=== PATIENT | female | born 1940 | race Caucasian/White ===

== ENCOUNTER 2022-05-27 16:24 | Inpatient (IN) | payer MEDICARE, BC ==
[2022-05-27 17:44] LABS: #Eosinphils 0.1 10x3/uL (0.0-0.5); #Monocytes 0.8 10x3/uL (0.0-1.1); #Neutrophils 7.7 10x3/uL (1.5-8.4); %Basophils 0.3 % (0.0-2.0); %Eosinophils 1.4 % (0.0-6.0); %Lymphocytes 7.4 % (18.0-47.0); %Monocytes 8.9 % (0.0-10.0); %Neutrophils 81.5 % (40.0-75.0); Hemoglobin 8.8 g/dL (12.0-15.5); Mean Corpuscular HGB CONC 31.7 g/dL (32.0-36.0); Mean Corpuscular Hemoglobin 28.7 pg (27.0-33.0); Mean Corpuscular Volume 90.6 fl (81.6-98.3); Mean Platelet Volume 10.5 fl (7.4-10.4); Platelet Count 195 10x3/uL (150-450); RBC Distribution Width 12.5 % (11.5-14.5); Red Blood Cell (RBC) Count 3.07 10x6/uL (3.90-5.03); White Blood Cell (WBC) Count 9.4 10x3/uL (3.5-10.5)
[2022-05-27 17:55] LABS: ALT (SGPT) 10 U/L (8-55); AST (SGOT) 14 U/L (5-34); Albumin 3.2 g/dL (3.4-4.8); Alkaline Phosphatase 74 U/L (40-110); Anion Gap 14 mmol/L (10-20); BUN (Urea Nitrogen) 32 mg/dL (9.8-20.1); Bilirubin, Total 0.8 mg/dL (0.2-1.2); Calc. Creatinine Clearance 0 mL/min (70-130); Calcium 8.5 mg/dL (7.8-10.44); Carbon Dioxide 22 mmol/L (23-31); Chloride 108 mmol/L (98-107); Estimated GFR 25; Globulin 2.8 g/dL (2.4-3.5); Glucose 187 mg/dL (83-110); Potassium 3.4 mmol/L (3.5-5.1); Sodium 141 mmol/L (136-145)
[2022-05-27] MEDS ORDERED: Cefepime 2 GM VIAL ONE (18:11)
[2022-05-27] MEDS ORDERED: VANCOMYCIN 2 GRAM/400 ML BAG 2 GM in Premix Bag 1 BAG IVPB SCH (18:45)
[2022-05-27 20:55] VITALS: BMI 31.6
[2022-05-27] MEDS ORDERED: Apixaban 2.5 MG TAB PO SCH (21:15)
[2022-05-27] MEDS ORDERED: Potassium Chloride 20 MEQ TAB PO SCH (21:15)
[2022-05-27] MEDS ORDERED: Vancomycin 1 GM in Premix Bag 1 BAG IVPB PRN (21:22)
[2022-05-27] MEDS: Sodium Chloride 0.9% 1,000 ML IV SCH (22:29)
[2022-05-27] MEDS ORDERED: FLU VACC QS2022-23(65YR UP)/PF 240 MCG/0.7 ML SYRINGE IM ONE (23:15)
[2022-05-28 04:24] LABS: Anion Gap 12 mmol/L (10-20); BUN (Urea Nitrogen) 30 mg/dL (9.8-20.1); Calc. Creatinine Clearance 33 mL/min (70-130); Calcium 8.2 mg/dL (7.8-10.44); Carbon Dioxide 24 mmol/L (23-31); Chloride 108 mmol/L (98-107); Estimated GFR 29; Glucose 133 mg/dL (83-110); Potassium 3.5 mmol/L (3.5-5.1); Sodium 140 mmol/L (136-145)
[2022-05-28 04:35] LABS: #Eosinphils 0.3 10x3/uL (0.0-0.5); #Monocytes 0.6 10x3/uL (0.0-1.1); #Neutrophils 6.5 10x3/uL (1.5-8.4); %Basophils 0.4 % (0.0-2.0); %Eosinophils 3.7 % (0.0-6.0); %Lymphocytes 8.1 % (18.0-47.0); %Monocytes 7.8 % (0.0-10.0); %Neutrophils 79.6 % (40.0-75.0); Hemoglobin 7.9 g/dL (12.0-15.5); Mean Corpuscular HGB CONC 33.5 g/dL (32.0-36.0); Mean Corpuscular Hemoglobin 28.8 pg (27.0-33.0); Mean Corpuscular Volume 86.1 fl (81.6-98.3); Platelet Count 193 10x3/uL (150-450); RBC Distribution Width 12.4 % (11.5-14.5); Red Blood Cell (RBC) Count 2.74 10x6/uL (3.90-5.03); White Blood Cell (WBC) Count 8.1 10x3/uL (3.5-10.5)
[2022-05-28] MEDS: Carvedilol 12.5 MG TAB PO SCH ×2 (08:55→17:18)
[2022-05-28] MEDS: Furosemide 40 MG TAB PO SCH (08:55)
[2022-05-28] MEDS ORDERED: Apixaban 2.5 MG TAB PO SCH ×2 (09:00)
[2022-05-28] MEDS ORDERED: Glimepiride 2 MG TAB PO SCH (09:00)
[2022-05-28] MEDS ORDERED: Dextrose 50% Abboject 50 ML SYRINGE SLOW IVP PRN (13:22)
[2022-05-28] MEDS ORDERED: Dextrose 5% in Water 1,000 ML IV PRN (13:22)
[2022-05-28] MEDS: Sodium Chloride 0.9% 1,000 ML IV SCH (17:16)
[2022-05-28] MEDS: Cefepime 1 GM in Sodium Chloride 0.9% 100 ML IVPB SCH (17:17)
[2022-05-28] MEDS ORDERED: VANCOMYCIN 1.25 GM/250 ML BAG IVPB SCH (19:00)
[2022-05-28 19:59] LABS: Vancomycin, Random 16.7 ug/mL (See Comment)
[2022-05-28] MEDS: Enoxaparin Sodium 100 MG/ML SYRINGE SC SCH (23:32)
[2022-05-28] MEDS: Lantus 1000 UNITS/10 ML VIAL SC SCH (23:34)
[2022-05-29] MEDS ORDERED: Vancomycin HCl 500 MG in Sodium Chloride 0.9% 100 ML IVPB SCH (06:00)
[2022-05-29] MEDS: Sodium Chloride 0.45% 1,000 ML IV SCH ×2 (06:02→15:25)
[2022-05-29] MEDS: Carvedilol 12.5 MG TAB PO SCH ×2 (06:02→18:46)
[2022-05-29] MEDS: Furosemide 40 MG TAB PO SCH (07:30)
[2022-05-29 08:36] LABS: Hemoglobin 8.8 g/dL (12.0-15.5); Mean Corpuscular HGB CONC 32.2 g/dL (32.0-36.0); Mean Corpuscular Hemoglobin 27.9 pg (27.0-33.0); Mean Corpuscular Volume 86.7 fl (81.6-98.3); Mean Platelet Volume 10.1 fl (7.4-10.4); Platelet Count 239 10x3/uL (150-450); RBC Distribution Width 12.5 % (11.5-14.5); Red Blood Cell (RBC) Count 3.15 10x6/uL (3.90-5.03); White Blood Cell (WBC) Count 8.5 10x3/uL (3.5-10.5)
[2022-05-29 09:00] LABS: Anion Gap 15 mmol/L (10-20); BUN (Urea Nitrogen) 32 mg/dL (9.8-20.1); Calc. Creatinine Clearance 30 mL/min (70-130); Calcium 8.5 mg/dL (7.8-10.44); Carbon Dioxide 20 mmol/L (23-31); Chloride 110 mmol/L (98-107); Estimated GFR 26; Glucose 126 mg/dL (83-110); Potassium 3.5 mmol/L (3.5-5.1); Sodium 141 mmol/L (136-145)
[2022-05-29] MEDS: Cefepime 1 GM in Sodium Chloride 0.9% 100 ML IVPB SCH (18:46)
[2022-05-29] MEDS ORDERED: Ondansetron PF 4 MG/2 ML Vial ONE (20:00)
[2022-05-29] MEDS ORDERED: Fentanyl 100 MCG/2 ML VIAL ONE (20:00)
[2022-05-29] MEDS ORDERED: Dexamethasone 4 mg/ml Vial ONE (20:00)
[2022-05-29] MEDS ORDERED: PROPOFOL 200 MG/20 ML VIAL ONE (20:00)
[2022-05-29] MEDS: Enoxaparin Sodium 100 MG/ML SYRINGE SC SCH (20:36)
[2022-05-29] MEDS: Lantus 1000 UNITS/10 ML VIAL SC SCH (20:36)
[2022-05-29] MEDS ORDERED: traMADol HCl 50 MG TAB PO PRN (20:40)
[2022-05-29] MEDS ORDERED: Acetaminophen 500 MG TAB PO PRN (20:40)
[2022-05-29] MEDS ORDERED: Ibuprofen 400 MG TAB PO PRN (20:57)
[2022-05-30] MEDS: Sodium Chloride 0.45% 1,000 ML IV SCH ×2 (01:39→12:15)
[2022-05-30] MEDS: HumaLOG 300 UNITS/3 ML VIAL SC PRN ×3 (05:38→21:11)
[2022-05-30 06:12] LABS: Vancomycin, Random 12.5 ug/mL (See Comment)
[2022-05-30 08:50] LABS: Anion Gap 13 mmol/L (10-20); BUN (Urea Nitrogen) 30 mg/dL (9.8-20.1); Calc. Creatinine Clearance 39 mL/min (70-130); Calcium 8.2 mg/dL (7.8-10.44); Carbon Dioxide 20 mmol/L (23-31); Chloride 109 mmol/L (98-107); Estimated GFR 35; Glucose 220 mg/dL (83-110); Potassium 3.7 mmol/L (3.5-5.1); Sodium 138 mmol/L (136-145)
[2022-05-30 08:55] LABS: Hemoglobin 8.6 g/dL (12.0-15.5); Mean Corpuscular HGB CONC 33.1 g/dL (32.0-36.0); Mean Corpuscular Hemoglobin 28.1 pg (27.0-33.0); Mean Platelet Volume 9.8 fl (7.4-10.4); Platelet Count 219 10x3/uL (150-450); RBC Distribution Width 12.4 % (11.5-14.5); Red Blood Cell (RBC) Count 3.06 10x6/uL (3.90-5.03); White Blood Cell (WBC) Count 4.9 10x3/uL (3.5-10.5)
[2022-05-30] MEDS: Carvedilol 12.5 MG TAB PO SCH ×2 (10:14→17:16)
[2022-05-30] MEDS: Furosemide 40 MG TAB PO SCH (10:19)
[2022-05-30] MEDS ORDERED: Vancomycin HCl 750 MG in Sodium Chloride 0.9% 250 ML 250 ML IVPB SCH (11:00)
[2022-05-30] MEDS: Cefepime 1 GM in Sodium Chloride 0.9% 100 ML IVPB SCH ×2 (12:15→22:58)
[2022-05-30] MEDS ORDERED: Amlodipine 10 MG TAB PO SCH (12:30)
[2022-05-30] MEDS: Apixaban 5 MG TAB PO SCH (21:06)
[2022-05-30] MEDS: Lantus 1000 UNITS/10 ML VIAL SC SCH (21:08)
[2022-05-31] MEDS: Sodium Chloride 0.45% 1,000 ML IV SCH ×3 (00:48→08:30)
[2022-05-31] MEDS ORDERED: Magnesium Citrate 300 ML BOT PO SCH (08:00)
[2022-05-31] MEDS: Amlodipine 5 MG TAB PO SCH (08:25)
[2022-05-31] MEDS: Polyethylene Glycol 3350 17 GM Packet PO SCH (08:25)
[2022-05-31] MEDS: Apixaban 5 MG TAB PO SCH ×2 (08:25→20:22)
[2022-05-31] MEDS: Carvedilol 12.5 MG TAB PO SCH ×2 (08:26→17:23)
[2022-05-31] MEDS: Furosemide 40 MG TAB PO SCH (08:27)
[2022-05-31] MEDS ORDERED: Milk Of Magnesia 30 ML UDCUP PO SCH (12:00)
[2022-05-31] MEDS: Cefepime 1 GM in Sodium Chloride 0.9% 100 ML IVPB SCH (12:03)
[2022-05-31 12:06] LABS: Vancomycin, Random 14.7 ug/mL (See Comment)
[2022-05-31] MEDS ORDERED: Vancomycin HCl 1 GM in Sodium Chloride 0.9% 250 ML 250 ML IVPB SCH (15:00)
[2022-05-31] MEDS: Amoxicillin/Potassium Clav 500 MG TAB PO SCH (20:22)
[2022-05-31] MEDS: Lantus 1000 UNITS/10 ML VIAL SC SCH (20:23)
[2022-05-31] MEDS: HumaLOG 300 UNITS/3 ML VIAL SC PRN (20:23)
[2022-06-01] MEDS ORDERED: Bisacodyl 10 MG SUPP PR PRN (05:36)
[2022-06-01] MEDS: Polyethylene Glycol 3350 17 GM Packet PO SCH (10:18)
[2022-06-01] MEDS: Carvedilol 12.5 MG TAB PO SCH (10:18)
[2022-06-01] MEDS: Amoxicillin/Potassium Clav 500 MG TAB PO SCH (10:18)
[2022-06-01] MEDS: Furosemide 40 MG TAB PO SCH (10:18)
[2022-06-01] MEDS: Amlodipine 5 MG TAB PO SCH (10:18)
[2022-06-01] MEDS: Apixaban 5 MG TAB PO SCH (10:18)
[2022-06-01 15:14] VITALS: BP 166/71; TEMP 98.1
== END 2022-06-01 16:34 | disposition home health service (06) | DRG 617 ==
LOC: CSHERS 16:24 → CSHTELE 20:27
PROVIDERS: ADMIT Family Medicine; ATTEND Family Medicine
PROC: 0Y6P0Z1 Detachment at Right 1st Toe, High, Open Approach (ICD-10-PCS; principal; 2022-05-29)
DX: E11.628 Type 2 diabetes mellitus with other skin complications (principal); I50.32 Chronic diastolic (congestive) heart failure; M86.8X7 Other osteomyelitis, ankle and foot; Z20.822 Contact with and (suspected) exposure to COVID-19; E11.42 Type 2 diabetes mellitus with diabetic polyneuropathy; E11.22 Type 2 diabetes mellitus with diabetic chronic kidney disease; N18.4 Chronic kidney disease, stage 4 (severe); D63.1 Anemia in chronic kidney disease; E87.6 Hypokalemia; E11.69 Type 2 diabetes mellitus with other specified complication; K43.2 Incisional hernia without obstruction or gangrene; K59.00 Constipation, unspecified; B95.5 Unspecified streptococcus as the cause of diseases classified elsewhere; L97.519 Non-pressure chronic ulcer of other part of right foot with unspecified severity; Z86.718 Personal history of other venous thrombosis and embolism; Z79.01 Long term (current) use of anticoagulants; I25.2 Old myocardial infarction; Z89.422 Acquired absence of other left toe(s); Z79.4 Long term (current) use of insulin; Z90.49 Acquired absence of other specified parts of digestive tract; Z80.3 Family history of malignant neoplasm of breast; Z79.84 Long term (current) use of oral hypoglycemic drugs; Z90.710 Acquired absence of both cervix and uterus; Z90.722 Acquired absence of ovaries, bilateral; Z91.040 Latex allergy status
CPT/HCPCS: 36415; 36416; 80048; 80053; 80202; 82565; 83605; 83735; 85025; 85027; 87040; 87070; 87077; 87186; 87205; 88305; 88311; 93005; 93010; 96365; 96367; 97139; J0692; J1100; J1650; J1815; J2405; J2704; J3010; J3370; J3490; J7050; J7070; J7999; U0003; U0005

== ENCOUNTER 2022-06-19 11:31 | Outpatient (CLI) | payer MEDICARE, BC | END 2022-06-19 11:32 | disposition home or self-care (01) | LOC: CSHWCC 11:31 | PROVIDERS: ATTEND Nurse Practitioner Family | DX: T81.89XD Other complications of procedures, not elsewhere classified, subsequent encounter (principal); Z89.411 Acquired absence of right great toe | CPT/HCPCS: 97139; G0463; 99203 ==

== ENCOUNTER 2022-07-10 10:09 | Outpatient (CLI) | payer MEDICARE, BC | END 2022-07-10 10:10 | disposition home or self-care (01) | LOC: CSHWCC 10:09 | PROVIDERS: ATTEND Nurse Practitioner Family | DX: T81.89XD Other complications of procedures, not elsewhere classified, subsequent encounter (principal) | CPT/HCPCS: 99213; G0463 ==

== ENCOUNTER 2025-02-14 14:01 | Inpatient (IN) | payer MEDICARE, BC ==
[2025-02-14] MEDS ORDERED: Furosemide 40 MG (4 mL) VIAL ONE ×2 (14:24→15:47)
[2025-02-14 14:34] LABS: #Basophils Less than 0.03 10x3/uL (0.0-0.2); #Eosinophils 0.37 10x3/uL (0.0-0.5); #Monocytes 0.44 10x3/uL (0.0-1.1); #Neutrophils 3.78 10x3/uL (1.5-8.4); %Basophils 0.2 % (0.0-2.0); %Eosinophils 7.0 % (0.0-6.0); %Lymphocytes 12.4 % (18.0-47.0); %Monocytes 8.4 % (0.0-10.0); %Neutrophils 71.8 % (40.0-75.0); Hematocrit 28.2 % (34.9-44.5); Hemoglobin 8.9 g/dL (12.0-15.5); Mean Corpuscular Hemoglobin 26.0 pg (27.0-33.0); Mean Corpuscular Volume 82.5 fL (81.6-98.3); Platelet Count 165 10x3/uL (150-450); Red Blood Cell (RBC) Count 3.42 10x6/uL (3.90-5.03); White Blood Cell (WBC) Count 5.26 10x3/uL (3.5-10.5)
[2025-02-14 14:58] LABS: ALT (SGPT) 24 U/L (Less than 34); AST (SGOT) 27 U/L (11-34); Albumin 2.9 g/dL (3.1-4.5); Alkaline Phosphatase 98 U/L (40-110); Anion Gap 12 mmol/L (10-20); BUN (Urea Nitrogen) 23 mg/dL (9.8-20.1); Bilirubin, Total 0.9 mg/dL (0.3-1.2); Calc. Creatinine Clearance 0 mL/min (70-130); Calcium 8.2 mg/dL (7.8-10.44); Carbon Dioxide 22 mmol/L (23-31); Chloride 113 mmol/L (98-107); Globulin 3.1 g/dL (2.4-3.5); Glucose 148 mg/dL (83-110); Potassium 4.2 mmol/L (3.5-5.1); Sodium 143 mmol/L (136-145)
[2025-02-14 15:00] LABS: Troponin I 0.035 ng/mL (< 0.028)
[2025-02-14] MEDS ORDERED: Aspirin Chewable 81 MG TAB ONE (15:27)
[2025-02-14] MEDS ORDERED: hydrALAZINE 20 MG/ML VIAL ONE (16:04)
[2025-02-14] MEDS ORDERED: Dextrose 50% Abboject 50 ML SYRINGE SLOW IVP PRN (16:42)
[2025-02-14] MEDS ORDERED: Glucagon 1 MG/ML KIT IM PRN (16:42)
[2025-02-14] MEDS ORDERED: Acetaminophen 325 MG TAB PO PRN (16:46)
[2025-02-14] MEDS ORDERED: Ondansetron PF 4 MG/2 ML Vial IVP PRN (16:46)
[2025-02-14 16:49] LABS: Glucose, Urine (Dipstick) Normal (Negative); Leukocyte 500 (Negative); Protein, Urine (Dipstick) 100 mg/dl (Neg-Trace); Specific Gravity, Urine 1.010 (1.005-1.030)
[2025-02-14 17:13] LABS: Magnesium 2.0 mg/dL (1.6-2.6)
[2025-02-14 17:18] LABS: CAUTI Indications for Culture Alt mental st,lethar
[2025-02-14 17:20] LABS: Bacteria/HPF 2+ HPF (None Seen); Mucous/LPF 1+ LPF (<2+)
[2025-02-14 17:24] LABS: Urine Culture Reflex No No
[2025-02-14 17:55] LABS: Troponin I 0.034 ng/mL (< 0.028)
[2025-02-14] MEDS: Carvedilol 6.25 MG TAB PO SCH (18:12)
[2025-02-14] MEDS: Acetaminophen 325 MG TAB PO PRN (19:16)
[2025-02-14] MEDS: hydrALAZINE 20 MG/ML VIAL SLOW IVP SCH (19:17)
[2025-02-14] MEDS: Nitroglycerin 2% Ointment 1 INCH/1 GM Packet TOP SCH (19:17)
[2025-02-14] MEDS: TICAGRELOR 90 MG TABLET PO SCH (22:15)
[2025-02-14] MEDS: Heparin 5,000 UNITS/ML VIAL SC SCH (22:15)
[2025-02-14] MEDS: Lisinopril 10 MG TAB PO SCH (22:18)
[2025-02-15 04:50] LABS: #Basophils 0.04 10x3/uL (0.0-0.2); #Eosinophils 0.41 10x3/uL (0.0-0.5); #Monocytes 0.55 10x3/uL (0.0-1.1); #Neutrophils 3.35 10x3/uL (1.5-8.4); %Basophils 0.8 % (0.0-2.0); %Eosinophils 8.3 % (0.0-6.0); %Lymphocytes 12.1 % (18.0-47.0); %Monocytes 11.1 % (0.0-10.0); %Neutrophils 67.5 % (40.0-75.0); Hematocrit 28.2 % (34.9-44.5); Hemoglobin 9.1 g/dL (12.0-15.5); Mean Corpuscular Hemoglobin 26.5 pg (27.0-33.0); Mean Corpuscular Volume 82.0 fL (81.6-98.3); Platelet Count 175 10x3/uL (150-450); Red Blood Cell (RBC) Count 3.44 10x6/uL (3.90-5.03); White Blood Cell (WBC) Count 4.96 10x3/uL (3.5-10.5)
[2025-02-15 05:02] LABS: Anion Gap 13 mmol/L (10-20); BUN (Urea Nitrogen) 25 mg/dL (9.8-20.1); Calc. Creatinine Clearance 0 mL/min (70-130); Calcium 8.2 mg/dL (7.8-10.44); Carbon Dioxide 23 mmol/L (23-31); Chloride 112 mmol/L (98-107); Glucose 82 mg/dL (83-110); Potassium 3.5 mmol/L (3.5-5.1); Sodium 144 mmol/L (136-145)
[2025-02-15 07:53] VITALS: BMI 31.8
[2025-02-15] MEDS: Lisinopril 10 MG TAB PO SCH ×2 (09:08→13:22)
[2025-02-15] MEDS: Aspirin 81 mg Enteric Coated Tablet PO SCH (09:08)
[2025-02-15] MEDS: Pantoprazole 40 MG DR.TAB PO SCH (09:08)
[2025-02-15] MEDS: Furosemide 40 MG (4 mL) VIAL SLOW IVP SCH (09:09)
[2025-02-15] MEDS: Glimepiride 2 MG TAB PO SCH (09:09)
[2025-02-15] MEDS: Carvedilol 12.5 MG TAB PO SCH (16:27)
[2025-02-16] MEDS: Benzonatate 100 MG CAP PO PRN (02:55)
[2025-02-16] MEDS: Nitroglycerin 2% Ointment 1 INCH/1 GM Packet TOP SCH ×2 (04:14→05:55)
[2025-02-16] MEDS: Nitroglycerin 2% Ointment 1 INCH/1 GM Packet ONE (04:29)
[2025-02-16] MEDS: Furosemide 40 MG (4 mL) VIAL SLOW IVP SCH (04:31)
[2025-02-16] MEDS: hydrALAZINE 20 MG/ML VIAL SLOW IVP SCH (05:01)
[2025-02-16 06:11] LABS: Anion Gap 12 mmol/L (10-20); BUN (Urea Nitrogen) 26 mg/dL (9.8-20.1); Calc. Creatinine Clearance 36 mL/min (70-130); Calcium 8.5 mg/dL (7.8-10.44); Carbon Dioxide 25 mmol/L (23-31); Chloride 108 mmol/L (98-107); Glucose 95 mg/dL (83-110); Magnesium 1.9 mg/dL (1.6-2.6); Potassium 4.2 mmol/L (3.5-5.1); Sodium 141 mmol/L (136-145)
[2025-02-16] MEDS: Lisinopril 20 MG TAB PO SCH (07:59)
[2025-02-16] MEDS: Cyanocobalamin (Vitamin B-12) 1,000 MCG TAB PO SCH (08:00)
[2025-02-16] MEDS: Valsartan 80 MG TAB PO SCH (09:00)
[2025-02-16 10:48] LABS: Legionella Urinary Ag Negative (Negative); Strep pneumo Urine Ag NEGATIVE (NEGATIVE)
[2025-02-16] MEDS: hydrALAZINE 20 MG/ML VIAL SLOW IVP PRN (18:19)
[2025-02-16] MEDS ORDERED: Transdermal Patch Removal TOP SCH (23:00)
[2025-02-17] MEDS: REMOVAL LIDOCAINE TOP SCH (03:00)
[2025-02-17 04:25] LABS: Anion Gap 12 mmol/L (10-20); BUN (Urea Nitrogen) 30 mg/dL (9.8-20.1); Calc. Creatinine Clearance 32 mL/min (70-130); Calcium 8.3 mg/dL (7.8-10.44); Carbon Dioxide 25 mmol/L (23-31); Chloride 107 mmol/L (98-107); Glucose 143 mg/dL (83-110); Magnesium 1.8 mg/dL (1.6-2.6); Potassium 4.0 mmol/L (3.5-5.1); Sodium 140 mmol/L (136-145)
[2025-02-17] MEDS: Furosemide 40 MG (4 mL) VIAL SLOW IVP SCH (08:25)
[2025-02-17] MEDS: Furosemide 40 MG TAB PO SCH (09:41)
[2025-02-17] MEDS ORDERED: Transdermal Patch Removal TOP SCH (21:00)
[2025-02-18 04:33] LABS: Anion Gap 12 mmol/L (10-20); BUN (Urea Nitrogen) 38 mg/dL (9.8-20.1); Calc. Creatinine Clearance 26 mL/min (70-130); Calcium 8.0 mg/dL (7.8-10.44); Carbon Dioxide 26 mmol/L (23-31); Chloride 106 mmol/L (98-107); Glucose 121 mg/dL (83-110); Magnesium 1.9 mg/dL (1.6-2.6); Potassium 3.9 mmol/L (3.5-5.1); Sodium 140 mmol/L (136-145)
[2025-02-18] MEDS: REMOVAL LIDOCAINE TOP SCH (05:09)
[2025-02-18] MEDS ORDERED: Furosemide 40 MG TAB PO SCH (07:30)
[2025-02-19 03:57] LABS: Anion Gap 12 mmol/L (10-20); BUN (Urea Nitrogen) 41 mg/dL (9.8-20.1); Calc. Creatinine Clearance 24 mL/min (70-130); Calcium 7.9 mg/dL (7.8-10.44); Carbon Dioxide 26 mmol/L (23-31); Chloride 106 mmol/L (98-107); Glucose 152 mg/dL (83-110); Potassium 4.2 mmol/L (3.5-5.1); Sodium 140 mmol/L (136-145)
[2025-02-19] MEDS: Calcium Carbonate 500 MG ChewTAB PO SCH (04:47)
[2025-02-19 08:31] VITALS: TEMP 97.9
[2025-02-19 16:18] VITALS: BP 140/90
[2025-02-19 22:09] LABS: Mycoplasma pneumoniae IgG AB 780 U/mL (0-99); Mycoplasma pneumoniae IgM AB Less than 770 U/mL (0-769)
== END 2025-02-19 16:16 | DRG 291 ==
LOC: CSHERS 14:01 → CSHTELE 15:50 → OBSVTOIN 02-16 10:30
PROVIDERS: ADMIT Family Medicine; ATTEND Internal Medicine
DX: I13.0 Hypertensive heart and chronic kidney disease with heart failure and stage 1 through stage 4 chronic kidney disease, or unspecified chronic kidney disease (principal); I50.33 Acute on chronic diastolic (congestive) heart failure; D63.1 Anemia in chronic kidney disease; F41.9 Anxiety disorder, unspecified; F32.A Depression, unspecified; E11.40 Type 2 diabetes mellitus with diabetic neuropathy, unspecified; N18.30 Chronic kidney disease, stage 3 unspecified; I89.0 Lymphedema, not elsewhere classified; I25.10 Atherosclerotic heart disease of native coronary artery without angina pectoris; W19.XXXA Unspecified fall, initial encounter; R33.9 Retention of urine, unspecified; R53.81 Other malaise; Z95.5 Presence of coronary angioplasty implant and graft; Z90.49 Acquired absence of other specified parts of digestive tract; I25.2 Old myocardial infarction; Z91.048 Other nonmedicinal substance allergy status; Z86.718 Personal history of other venous thrombosis and embolism; Z79.01 Long term (current) use of anticoagulants; Z89.421 Acquired absence of other right toe(s); Z89.422 Acquired absence of other left toe(s); Z98.890 Other specified postprocedural states; Z79.899 Other long term (current) drug therapy
CPT/HCPCS: 36415; 36416; 71045; 80048; 80053; 81001; 83735; 83880; 84484; 85025; 87077; 87081; 87086; 87186; 87449; 87899; 93005; 93306; 94640; 94760; 94762; 96374; 96375; 96376; 97139; J0360; J1644; J1940; J7620